=== PATIENT | male | born 1955 | race Caucasian/White ===

== ENCOUNTER 2017-09-26 08:56 | Emergency (ER) | payer OTHER ==
[2017-09-26 09:09] VITALS: RESP 16; TEMP 98.1
--- NOTE | 2017-09-26 09:21 | EDPHY ---
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 Patient did have a flight from [place] to [facility] about a week ago. He did also feel a strain in his leg while working out last week. 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 He is not currently on any blood thinners. No chest pain or shortness of breath. No fevers or chills. He does state that since he had his PE in the past he does try to get up walk around about every hour during the flight. ROS: 10 point Review of Systems is negative except as noted in the HPI. PMH: PE and DVT in the past Social History: No smoking, no alcohol, no recreational drug use Family History: non-contributory Physical Exam: Gen: Awake, Alert, No Distress HEENT: Nose: no rhinorrhea Eyes: PERRLA, EOMI Mouth: Moist mucosa Neck: Supple, no JVD Chest: nontender, lungs clear to auscultation Heart: S1, S2 normal, no murmur Abd: Soft, non-tender, no guarding Back: no CVA tenderness, no midline tenderness Ext: Mild left calf edema 0 with 1 cm greater circumference than his right. Mild calf tenderness. No erythema. Normal pulses. Skin: no rash Neuro: CN II-XII intact, Sensation grossly intact, Strength 5/5 in bilateral upper and lower extremities - Personal History Current Tetanus Diphtheria and Acellular Pertussis (TDAP): Yes - Medical/Surgical History Hx Asthma: No Hx Chronic Respiratory Disease: No Hx Diabetes: No Hx Cardiac Disease: No Hx Renal Disease: No Hx Cirrhosis: No Hx Alcoholism: No Hx HIV/AIDS: No Hx Splenectomy or Spleen Trauma: No Other PMH: vasectomy. BPH. PE 2004. fractures/ortho injuries - Social History Smoking Status: Never smoked Constitutional: Initial Vital Signs Temperature (C) 36.7 C 09/26/17 09:05 Heart Rate 63 09/26/17 09:05 Respiratory Rate 16 09/26/17 09:05 Blood Pressure 137/82 H 09/26/17 09:05 O2 Sat (%) 95 09/26/17 09:05 O2 Delivery Mode Room Air Allergies/Adverse Reactions: No Known Allergies Allergy (Verified 09/26/17 09:03) Home Medications: Medication Instructions Recorded Apremilast [Otezla] 30 mg PO 09/26/17 Dutasteride [Avodart 0.5 MG (*)] 0.5 mg PO DAILY 09/26/17 Rivaroxaban [Xarelto 15mg (*)] 15 mg PO BID #20 tab 09/26/17 Tamsulosin HCl [Flomax 0.4 MG (*)] 0.4 mg PO 09/26/17 Medical Decision Making - Diagnostics Imaging Results: Imaging Impressions Extremity Venous Study 09/26/17 09:12 Impression: 1. Deep vein thrombosis involving the posterior tibial veins in the left calf 2. Short segment superficial thrombophlebitis involving the greater saphenous vein. Results called and discussed with Eder Peng MD on 09/26/2017 at 10:23 ED Course/Re-evaluation: Patient is positive for DVT below the knee. 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 I have written a prescription. He will follow up with primary care physician. Return for any concerns. - Data Points Medications Given: Discontinued Medications Rivaroxaban (Xarelto) 15 mg PO EDNOW ONE Stop: 09/26/17 11:30 Last Admin: 09/26/17 11:35 Dose: 15 mg Departure - Departure Disposition: Home, Routine, Self-Care Clinical Impression: DVT (deep venous thrombosis) Condition: Good Instructions: Deep Vein Thrombosis (ED) Additional Instructions: Follow up with your primary care physician in 3-4 days for further evaluation. Make sure to take your blood thinning medication daily. Return to the emergency department for increasing leg pain, shortness of breath , cough, fevers, chills, or any other concerns. Referrals: Vance Pulido MD [Primary Care Provider] - As per Instructions Prescriptions: Rivaroxaban [Xarelto 15mg (*)] 15 mg PO BID #20 tab
[2017-09-26] MEDS ORDERED: RIVAROXABAN 15 MG TAB PO ONE (11:29)
[2017-09-26 11:39] VITALS: BP 139/79; PULSE 69; O2SAT 96
== END 2017-09-26 11:38 | disposition home or self-care (01) ==
DX: I82.442 Acute embolism and thrombosis of left tibial vein (principal); Z79.01 Long term (current) use of anticoagulants

== ENCOUNTER 2018-05-24 12:29 | Emergency (ER) | payer OTHER ==
--- NOTE | 2018-05-24 12:44 | EDPHY ---
H & P Stated Complaint: L eyebrow lac Source: Patient Exam Limitations: No limitations - Personal History Current Tetanus/Diphtheria Vaccine: Yes Current Tetanus Diphtheria and Acellular Pertussis (TDAP): Yes - Medical/Surgical History Hx Asthma: No Hx Chronic Respiratory Disease: No Hx Diabetes: No Hx Cardiac Disease: No Hx Renal Disease: No Hx Cirrhosis: No Hx Alcoholism: No Hx HIV/AIDS: No Hx Splenectomy or Spleen Trauma: No - Social History Smoking Status: Never smoked Time Seen by Provider: 05/24/18 12:42 HPI/ROS: HPI: This is a 62-year-old male who presents with Chief Complaint: Left eyebrow laceration Location: Left eyebrow Quality: Laceration Duration: 1 hr prior to arrival Signs and Symptoms: No bleeding, no radiation, no numbness, no weakness, no tingling, no incontinence, no decreased range of motion, no swelling, no pain, no fever Timing: Acute Severity: Mild Context: Patient was playing handball, wearing goggles, when he was hit and goggles with the ball. He sustained a laceration to the left side of his nose as well to his left eyebrow. He denies LOC/head injury/neck pain/dizziness/ nausea/vomiting/amnesia. Tetanus is current. He is unsure if he needs sutures or not. Drove himself to the emergency room. Modifying Factors: Direct pressure Comment: ROS: A comprehensive 10 system review of systems is otherwise negative aside from elements mentioned in the history of present illness. MEDICAL/SURGICAL/SOCIAL HISTORY: Medical history: BPH Surgical history: Denies Social history: Retired CONSTITUTIONAL: Physically fit adult white male, awake and alert, no obvious distress HEENT: normocephalic. 2 cm, vertical superficial laceration on left eyebrow and 1/4 of the superficial abrasion on left side of bridge of nose-no active bleeding. NECK: supple, no midline tenderness, flexion 45 degrees, extension 45 degrees, right and left lateral flexion 45 degrees. No meningismus. EXTREMITIES: 2/2 pulses, strength 5/5, DIP/PIP/MCP flexion/extension intact with good light touch sensation. no deformities, no clubbing, no cyanosis or edema. NEUROLOGICAL: no focal neuro deficits. GCS 15. Light touch sensation intact. SKIN: Warm and dry, no erythema. no rash. Good capillary refill. (Marge Cee) Constitutional: Initial Vital Signs Temperature (C) 36.9 C 05/24/18 12:32 Heart Rate 67 05/24/18 12:32 Respiratory Rate 16 05/24/18 12:32 Blood Pressure 140/85 H 05/24/18 12:32 O2 Sat (%) 94 05/24/18 12:32 O2 Delivery Mode Room Air Allergies/Adverse Reactions: No Known Allergies Allergy (Verified 09/26/17 09:03) Home Medications: Medication Instructions Recorded Tamsulosin HCl [Flomax 0.4 MG (*)] 0.4 mg PO 09/26/17 Medical Decision Making Procedures: Procedure: Laceration repair. Verbal consent was obtained from the patient. The 2 cm, superficial, vertical, simple laceration on the left eyebrow was anesthetized in the usual fashion using 3 mL of 1% epinephrine with lidocaine. The wound was irrigated, draped and explored to its base with a gloved finger. There were no deep structures involved. No tendon injury was identified. The wound was repaired with #4, 5 0 Prolene in simple interrupted pattern. Good hemostasis was achieved and patient tolerated procedure well. Clean sterile dressing applied The procedure was performed by myself. (Marge Cee) ED Course/Re-evaluation: Tetanus is current. Local anesthesia provided, irrigated copiously, laceration repaired with nonabsorbable suture. No LOC. No neurological deficits. No indication for head CT or cervical CT imaging. Verbal and written wound care instructions provided. No signs of neurovascular compromise/tenting of skin/compartment syndrome/ extremities and joints examined above and below area of concern and are neurovascularly intact/concussion. This patient was seen under the supervision of my secondary supervising physician. I evaluated care for this patient independently. Discussed this patient with Dr. Olivares. (Marge Cee) I did not see this patient while he was in the emergency department. However his care was discussed with the PA while the patient was in the department. I agree with treatment plan and management (Durga Olivares) Differential Diagnosis: Differential diagnosis includes but is not limited to contusion, laceration, orbital fracture, concussion, nasal fracture. (Marge Cee) Departure - Departure Disposition: Home, Routine, Self-Care Clinical Impression: Abrasion of nose, initial encounter Laceration of left eyebrow without complication Qualifiers: Encounter type: initial encounter Qualified Code(s): S01.112A - Laceration without foreign body of left eyelid and periocular area, initial encounter Condition: Good Instructions: Care For Your Stitches (ED), Laceration (ED), Abrasion (ED) Additional Instructions: Keep the abrasion/laceration dry for 48 hours. After 48 hours, you may wash the site daily with mild soap and water; then pat dry. Apply topical antibiotic ointment and clean sterile dressing daily until fully healed. The laceration was repaired with skin glue. This will slowly dissolve over time. Take Tylenol 650 mg every 4 hours and/or Ibuprofen 600 mg every 8 hours with food as needed for pain/headache. Wound Care Follow-Up: Removal of sutures in [ 7 ] days. Suture removal is complimentary in uncomplicated cases. Infection or abnormal findings would require reevaluation by the MD. In that case, you may be billed. Return to the ER immediately if you have progressive headaches, neurologic deficits, gait abnormality, visual disturbance, slurred speech, or any other symptom that concerns you. Referrals: Vance Pulido MD [Primary Care Provider] - As per Instructions
[2018-05-24] MEDS ORDERED: SKIN ADHESIVE (DERMABOND) 1 EACH TP ONE (12:49)
[2018-05-24 13:19] VITALS: BP 145/84
== END 2018-05-24 13:18 | disposition home or self-care (01) ==
PROC: 0HQ1XZZ Repair Face Skin, External Approach (ICD-10-PCS; principal; 2018-05-24)
DX: S01.81XA Laceration without foreign body of other part of head, initial encounter (principal); S00.31XA Abrasion of nose, initial encounter; W21.09XA Struck by other hit or thrown ball, initial encounter; Y93.73 Activity, racquet and hand sports; Y92.9 Unspecified place or not applicable; Y99.9 Unspecified external cause status